=== PATIENT | male | born 1950 | race Caucasian/White ===

== ENCOUNTER 2016-10-03 13:19 | Emergency (ER) | payer MEDICAID ==
[2016-10-03 13:45] VITALS: BP 107/63
--- NOTE | 2016-10-03 14:16 | EDM.PDOC ---
ED HPI GENERAL MEDICAL PROBLEM - General Chief Complaint: General Stated Complaint: OUT OF MEDICAITION Time Seen by Provider: 10/03/16 14:13 Source of Information: Reports: Patient History Limitations: Reports: No Limitations - History of Present Illness INITIAL COMMENTS - FREE TEXT/NARRATIVE: pt states that he ran out of his metformin yesterday and was unable to be seen in the clinic for a refill. States that he just recently moved back and has not established a PCP yet. C/o generalized pain usually due to neuropathy but denies much pain currently. Onset: Today Associated Symptoms: Reports: No Other Symptoms - Related Data Allergies Allergy/AdvReac Type Severity Reaction Status Date / Time No Known Allergies Allergy Verified 08/16/15 00:50 Home Meds: Home Meds metFORMIN [Glucophage] 500 mg PO BID 08/12/15 [History] Gabapentin [Neurontin] 1 cap PO DAILY 10/03/16 [History] Past Medical History HEENT History: Reports: Impaired Vision Respiratory History: Reports: None Gastrointestinal History: Reports: None Genitourinary History: Reports: None Musculoskeletal History: Reports: Other (See Below) Other Musculoskeletal History: neuropathy Neurological History: Reports: None Psychiatric History: Reports: Anxiety, Depression, Suicide Attempt Endocrine/Metabolic History: Reports: Diabetes, Type II Hematologic History: Reports: None Oncologic (Cancer) History: Reports: None - Past Surgical History Head Surgeries/Procedures: Reports: None Cardiovascular Surgical History: Reports: None GI Surgical History: Reports: Other (See Below) Social & Family History - Tobacco Use Smoking Status *Q: Current Every Day Smoker Years of Tobacco use: 40 Packs/Tins Daily: 1 Used Tobacco, but Quit: No Second Hand Smoke Exposure: No - Caffeine Use Caffeine Use: Reports: Coffee, Soda - Recreational Drug Use Recreational Drug Use: No ED ROS GENERAL - Review of Systems Review Of Systems: ROS reveals no pertinent complaints other than HPI. ED EXAM, GENERAL - Physical Exam Exam: See Below Exam Limited By: No Limitations General Appearance: Alert, WD/WN, No Apparent Distress Eye Exam: Bilateral Eye: PERRL Respiratory/Chest: No Respiratory Distress, Lungs Clear, Normal Breath Sounds, No Accessory Muscle Use, Chest Non-Tender Cardiovascular: Normal Peripheral Pulses, Regular Rate, Rhythm, No Edema, No Gallop, No JVD, No Murmur, No Rub Peripheral Pulses: 4+: Brachial (L), Brachial (R), Radial (L), Radial (R) Neurological: Alert, Oriented, CN II-XII Intact, Normal Cognition, Normal Gait, Normal Reflexes, No Motor/Sensory Deficits Course - Vital Signs Last Recorded V/S: Last Vital Signs Temp 98.8 F 10/03/16 13:23 Pulse 86 10/03/16 13:23 Resp 16 10/03/16 13:23 BP 107/63 10/03/16 13:23 Pulse Ox 98 10/03/16 13:23 - Orders/Labs/Meds Orders: Active Orders 24 hr Category Date Time Status Glucose [Blood Glucose Check, Bedside] [RC] ONETIME Care 10/03/16 14:16 Active metFORMIN [Glucophage] Med 10/03/16 14:51 Once 500 mg PO ONETIME ONE Medication Orders Metformin HCl (Glucophage) 500 mg PO ONETIME ONE Stop: 10/03/16 14:52 Labs: Laboratory Tests 10/03/16 Range/Units 14:45 POC Glucose 170 H (70-105) mg/dl Meds: Medications Generic Name Dose Route Start Last Admin Trade Name Anaya PRN Reason Stop Dose Admin Metformin HCl 500 mg 10/03/16 14:51 Glucophage PO 10/03/16 14:52 ONETIME ONE - Re-Assessments/Exams Free Text/Narrative Re-Assessment/Exam: 10/03/16 14:52 Blood glucose 179, Will write for refill of metformin 500 mg for 2 weeks as patient states that he has appointment scheduled for then. Departure - Departure Time of Disposition: 14:53 Disposition: Home, Self-Care 01 Condition: Good Clinical Impression: Medication refill Diabetes Qualifiers: Diabetes mellitus type: type 2 Diabetes mellitus complication status: without complication Diabetes mellitus intermission coordinator insulin use: without intermission coordinator use Qualified Code(s): E11.9 - Type 2 diabetes mellitus without complications - Discharge Information Instructions: Medicine Refill at the Emergency Department, Type 2 Diabetes Mellitus, Adult Forms: ED Department Discharge Additional Instructions: Make sure to keep your appointment at the clinic for the refill of your medication. Return for any worsening symptoms - My Orders Last 24 Hours: My Active Orders 10/03/16 14:16 Glucose [Blood Glucose Check, Bedside] [RC] ONETIME 10/03/16 14:51 metFORMIN [Glucophage] 500 mg PO ONETIME ONE - Assessment/Plan Last 24 Hours: My Active Orders 10/03/16 14:16 Glucose [Blood Glucose Check, Bedside] [RC] ONETIME 10/03/16 14:51 metFORMIN [Glucophage] 500 mg PO ONETIME ONE
[2016-10-03] MEDS ORDERED: metFORMIN 500 MG Tab PO ONE (14:51)
== END 2016-10-03 15:16 | disposition home or self-care (01) ==
LOC: DL.ED 13:19
DX: E11.9 Type 2 diabetes mellitus without complications (principal); H54.7 Unspecified visual loss; F17.210 Nicotine dependence, cigarettes, uncomplicated; Z79.899 Other long term (current) drug therapy
CPT/HCPCS: 82962; 99282; A9270

== ENCOUNTER 2016-10-08 06:25 | Emergency (ER) | payer MEDICAID ==
[2016-10-08 06:33] VITALS: BP 116/73
[2016-10-08] MEDS ORDERED: Gabapentin 100 MG Cap PO ONE (06:43)
--- NOTE | 2016-10-08 06:47 | EDM.PDOC ---
ED HPI GENERAL MEDICAL PROBLEM - General Chief Complaint: Lower Extremity Injury/Pain Stated Complaint: PAIN IN LEGS/FEET AND FINGERS, [id number] Time Seen by Provider: 10/08/16 06:40 Source of Information: Reports: Patient History Limitations: Reports: No Limitations - History of Present Illness INITIAL COMMENTS - FREE TEXT/NARRATIVE: This 66 yo male patient reports to the ED for the second time this week due to running out of medications. The patient reports he ran out of his Gabapentin 2 days ago and has had increased pain in his feet. The patient reports he will be going back to [place] [employer] today and back to his hometown in a couple of days. Onset: Gradual Duration: Day(s):, Constant, Getting Worse Location: Reports: Generalized Quality: Reports: Ache Severity: Moderate Improves with: Reports: None Worsens with: Reports: None Associated Symptoms: Reports: No Other Symptoms Leg Pain Score (Numeric/FACES): 6 - Related Data Allergies Allergy/AdvReac Type Severity Reaction Status Date / Time No Known Allergies Allergy Verified 10/08/16 06:33 Home Meds: Home Meds metFORMIN [Glucophage] 500 mg PO BID 08/12/15 [History] Gabapentin [Neurontin] 1 cap PO DAILY 10/03/16 [History] Past Medical History HEENT History: Reports: Impaired Vision Respiratory History: Reports: None Gastrointestinal History: Reports: None Genitourinary History: Reports: None Musculoskeletal History: Reports: Other (See Below) Other Musculoskeletal History: neuropathy Neurological History: Reports: Neuropathy, Diabetic Psychiatric History: Reports: Anxiety, Depression, Suicide Attempt Endocrine/Metabolic History: Reports: Diabetes, Type II Hematologic History: Reports: None Oncologic (Cancer) History: Reports: None - Past Surgical History Head Surgeries/Procedures: Reports: None Cardiovascular Surgical History: Reports: None GI Surgical History: Reports: Other (See Below) Social & Family History - Tobacco Use Smoking Status *Q: Current Every Day Smoker Years of Tobacco use: 40 Packs/Tins Daily: 1 Used Tobacco, but Quit: No Second Hand Smoke Exposure: Yes - Caffeine Use Caffeine Use: Reports: Coffee, Soda - Recreational Drug Use Recreational Drug Use: No Review of Systems - Review of Systems Review Of Systems: ROS reveals no pertinent complaints other than HPI. ED EXAM, GENERAL - Physical Exam Exam: See Below Exam Limited By: No Limitations General Appearance: Alert, WD/WN, Anxious, Mild Distress Eye Exam: Bilateral Eye: EOMI, Normal Inspection, PERRL Ears: Normal External Exam, Normal Canal, Hearing Grossly Normal, Normal TMs Nose: Normal Inspection, Normal Mucosa, No Blood Throat/Mouth: Normal Inspection, Normal Lips, Normal Teeth, Normal Gums, Normal Oropharynx, Normal Voice, No Airway Compromise Head: Atraumatic, Normocephalic Neck: Normal Inspection, Supple, Non-Tender, Full Range of Motion Respiratory/Chest: No Respiratory Distress, Lungs Clear, Normal Breath Sounds, No Accessory Muscle Use, Chest Non-Tender Cardiovascular: Normal Peripheral Pulses, Regular Rate, Rhythm, No Edema, No Gallop, No JVD, No Murmur, No Rub GI/Abdominal: Normal Bowel Sounds, Soft, Non-Tender, No Organomegaly, No Distention, No Abnormal Bruit, No Mass (Male) Exam: Deferred Rectal (Males) Exam: Deferred Back Exam: Normal Inspection, Full Range of Motion, NT Extremities: Normal Inspection, Normal Range of Motion, Non-Tender, Normal Capillary Refill, No Pedal Edema Neurological: Alert, Oriented, CN II-XII Intact, Normal Cognition, Normal Gait, Normal Reflexes, No Motor/Sensory Deficits Psychiatric: Normal Affect, Normal Mood Skin Exam: Warm, Dry, Intact, Normal Color, No Rash Lymphatic: No Adenopathy Course - Vital Signs Last Recorded V/S: Last Vital Signs Temp 36.1 C 10/08/16 06:30 Pulse 70 10/08/16 06:30 Resp 18 10/08/16 06:30 BP 116/73 10/08/16 06:30 Pulse Ox 100 10/08/16 06:30 - Orders/Labs/Meds Meds: Medications Discontinued Medications Generic Name Dose Route Start Last Admin Trade Name Anaya PRN Reason Stop Dose Admin Gabapentin 100 mg 10/08/16 06:43 Neurontin PO 10/08/16 06:44 ONETIME ONE Departure - Departure Time of Disposition: 06:45 Disposition: Home, Self-Care 01 Condition: Fair Clinical Impression: Peripheral neuropathy Qualifiers: Peripheral neuropathy type: polyneuropathy, unspecified Qualified Code(s): G62.9 - Polyneuropathy, unspecified - Discharge Information Instructions: Neuropathic Pain, Peripheral Neuropathy Forms: ED Department Discharge Care Plan Goals: The patient was advised of the examination results during the visit. The patient was given an oral dose of Gabapentin (100 mg) while in the ED. The patient was discharged with a script for Gabapentin (100 mg) #4 to take 1 by mouth daily. The patient should follow-up with his primary care facility for continued evaluation and further management.
== END 2016-10-08 07:00 | disposition home or self-care (01) ==
LOC: DL.ED 06:25
DX: E11.42 Type 2 diabetes mellitus with diabetic polyneuropathy (principal); F41.9 Anxiety disorder, unspecified; F32.9 Major depressive disorder, single episode, unspecified; F17.210 Nicotine dependence, cigarettes, uncomplicated; Z79.899 Other long term (current) drug therapy
CPT/HCPCS: 99281; A9270

== ENCOUNTER 2019-09-14 07:21 | Emergency (ER) | payer MEDICARE, MEDICAID ==
--- NOTE | 2019-09-14 07:31 | EDM.PDOC ---
ED HPI GENERAL MEDICAL PROBLEM - General Chief Complaint: Medication Administration Stated Complaint: OUT OF MEDS FOR NEUROPATHY DIABETES Time Seen by Provider: 09/14/19 07:34 Source of Information: Reports: Patient, Old Records, RN, RN Notes Reviewed History Limitations: Reports: No Limitations - History of Present Illness INITIAL COMMENTS - FREE TEXT/NARRATIVE: Pt states he is from out of town and forgot his Metformin and Gabapentin, and has not taken them for about 2 weeks. Denies any acute complaints and admits that he has no medical emergency. He would like to have his medications refilled. Onset: Today Location: Reports: Generalized Associated Symptoms: Reports: No Other Symptoms Bilateral Feet Pain Score (Numeric/FACES): 8 - Related Data Allergies Allergy/AdvReac Type Severity Reaction Status Date / Time No Known Allergies Allergy Verified 09/14/19 07:34 Home Meds: Home Meds metFORMIN [Glucophage] 500 mg PO BID 08/12/15 [History] Gabapentin [Neurontin] 1,200 mg PO TID 09/14/19 [History] Past Medical History HEENT History: Reports: Impaired Vision Respiratory History: Reports: None Gastrointestinal History: Reports: None Genitourinary History: Reports: None Musculoskeletal History: Reports: Other (See Below) Other Musculoskeletal History: neuropathy Neurological History: Reports: Neuropathy, Diabetic Psychiatric History: Reports: Anxiety, Depression, Suicide Attempt Endocrine/Metabolic History: Reports: Diabetes, Type II Hematologic History: Reports: None Oncologic (Cancer) History: Reports: None - Past Surgical History Head Surgeries/Procedures: Reports: None Cardiovascular Surgical History: Reports: None GI Surgical History: Reports: Other (See Below) Social & Family History - Family History Family Medical History: Noncontributory - Caffeine Use Caffeine Use: Reports: Coffee, Soda - Living Situation & Occupation Occupation: Retired ED ROS GENERAL - Review of Systems Review Of Systems: Comprehensive ROS is negative, except as noted in HPI. ED EXAM, GENERAL - Physical Exam Exam: See Below Exam Limited By: No Limitations General Appearance: Alert, No Apparent Distress Respiratory/Chest: No Respiratory Distress (Male) Exam: Deferred Rectal (Males) Exam: Deferred Extremities: Normal Inspection Neurological: Alert, Oriented, Normal Cognition, Normal Gait Psychiatric: Normal Affect, Normal Mood Skin Exam: Warm, Dry, Intact, Normal Color Course - Vital Signs Last Recorded V/S: Last Vital Signs Temp 98.4 F 09/14/19 07:34 Pulse 59 L 09/14/19 07:34 Resp 16 09/14/19 07:34 BP 133/67 09/14/19 07:34 Pulse Ox 100 09/14/19 07:34 Departure - Departure Time of Disposition: 07:39 Disposition: Home, Self-Care 01 Condition: Good Clinical Impression: Medication refill - Discharge Information *PRESCRIPTION DRUG MONITORING PROGRAM REVIEWED*: No *COPY OF PRESCRIPTION DRUG MONITORING REPORT IN PATIENT KUSUM: No Forms: ED Department Discharge Additional Instructions: Follow up to establish care at a local clinic for medication management in the next 3 days. Sepsis Event Note - Focused Exam Vital Signs: Vital Signs Temp Pulse Resp BP Pulse Ox 09/14/19 07:34 98.4 F 59 L 16 133/67 100 Date Exam was Performed: 09/14/19 Time Exam was Performed: 07:39
[2019-09-14 07:37] VITALS: BP 133/67; PULSE 59
== END 2019-09-14 07:46 | disposition home or self-care (01) ==
LOC: DL.ED 07:21
DX: Z76.0 Encounter for issue of repeat prescription (principal); E11.40 Type 2 diabetes mellitus with diabetic neuropathy, unspecified; Z79.899 Other long term (current) drug therapy; Z79.84 Long term (current) use of oral hypoglycemic drugs
CPT/HCPCS: 99281; 99282

== ENCOUNTER 2021-04-08 12:55 | Emergency (ER) | payer MEDICARE ==
[2021-04-08 13:36] VITALS: BP 125/77; PULSE 65
--- NOTE | 2021-04-08 13:48 | EDM.PDOC ---
ED HPI GENERAL MEDICAL PROBLEM - General Stated Complaint: SORE ON FACE / MEDICATION REFILL Time Seen by Provider: 04/08/21 13:30 Source of Information: Reports: Patient History Limitations: Reports: No Limitations - History of Present Illness INITIAL COMMENTS - FREE TEXT/NARRATIVE: This 71 yo male patient reports to the ED due to running out of medication (Lyrica) and having a skin lesion on the right side of his face. The patient reports he is due to fill his Lyrica today and has a prescription at [facility] in [place], but does not plan on going to [place] today. The patient reports he has had the skin lesion on his right cheek and would like is removed with further evaluation for a possible cancer. Onset: Unknown/Unsure Duration: Constant Location: Reports: Face, Generalized Quality: Reports: Other Severity: Moderate Improves with: Reports: None Worsens with: Reports: None Context: Reports: Other Associated Symptoms: Reports: No Other Symptoms - Related Data Allergies Allergy/AdvReac Type Severity Reaction Status Date / Time No Known Allergies Allergy Verified 04/08/21 13:24 Home Meds: Home Meds metFORMIN [Glucophage] 500 mg PO BID 08/12/15 [History] Gabapentin [Neurontin] 1,200 mg PO TID 09/14/19 [History] Past Medical History HEENT History: Reports: Impaired Vision Respiratory History: Reports: None Gastrointestinal History: Reports: None Genitourinary History: Reports: None Musculoskeletal History: Reports: Other (See Below) Other Musculoskeletal History: neuropathy Neurological History: Reports: Neuropathy, Diabetic Psychiatric History: Reports: Anxiety, Depression, Suicide Attempt Endocrine/Metabolic History: Reports: Diabetes, Type II Hematologic History: Reports: None Oncologic (Cancer) History: Reports: None - Past Surgical History Head Surgeries/Procedures: Reports: None HEENT Surgical History: Reports: Tonsillectomy Cardiovascular Surgical History: Reports: None GI Surgical History: Reports: Other (See Below) Other GI Surgeries/Procedures: hx surgery on stomach to have razor blades that he had swallowed removed Social & Family History - Family History Family Medical History: No Pertinent Family History - Tobacco Use Tobacco Use Status *Q: Current Every Day Tobacco User Years of Tobacco use: 0 Packs/Tins Daily: 0 - Caffeine Use Caffeine Use: Reports: Coffee - Recreational Drug Use Recreational Drug Use: No - Living Situation & Occupation Occupation: Retired ED ROS GENERAL - Review of Systems Review Of Systems: Comprehensive ROS is negative, except as noted in HPI. ED EXAM, GENERAL - Physical Exam Exam: See Below Exam Limited By: No Limitations General Appearance: Alert, WD/WN, Moderate Distress Eye Exam: Bilateral Eye: EOMI, Normal Inspection, PERRL Ears: Normal External Exam, Normal Canal, Hearing Grossly Normal, Normal TMs Nose: Normal Inspection, Normal Mucosa, No Blood Throat/Mouth: Normal Inspection, Normal Lips, Normal Teeth, Normal Gums, Normal Oropharynx, Normal Voice, No Airway Compromise Head: Atraumatic, Normocephalic Neck: Normal Inspection, Supple, Non-Tender, Full Range of Motion Respiratory/Chest: No Respiratory Distress, Lungs Clear, Normal Breath Sounds, No Accessory Muscle Use, Chest Non-Tender Cardiovascular: Normal Peripheral Pulses, Regular Rate, Rhythm, No Edema, No Gallop, No JVD, No Murmur, No Rub GI/Abdominal: Normal Bowel Sounds, Soft, Non-Tender, No Organomegaly, No Distention, No Abnormal Bruit, No Mass (Male) Exam: Deferred Rectal (Males) Exam: Deferred Back Exam: Normal Inspection, Full Range of Motion, NT Extremities: Normal Inspection, Normal Range of Motion, Non-Tender, No Pedal Edema, Normal Capillary Refill, Other ([place]) Neurological: Alert, Oriented, CN II-XII Intact, Normal Cognition, Normal Gait Psychiatric: Normal Affect, Normal Mood Skin Exam: Warm, Dry, Intact, Normal Color, No Rash Lymphatic: No Adenopathy Course - Vital Signs Last Recorded V/S: Last Vital Signs Temp 98.7 F 04/08/21 13:24 Pulse 65 04/08/21 13:24 Resp 18 04/08/21 13:24 BP 125/77 04/08/21 13:24 Pulse Ox 95 04/08/21 13:24 - Orders/Labs/Meds Labs: Laboratory Tests 04/08/21 Range/Units 13:11 POC Glucose 92 (70-99) mg/dL Departure - Departure Time of Disposition: 13:48 Disposition: Home, Self-Care 01 Condition: Fair Clinical Impression: Neuropathy - Discharge Information *PRESCRIPTION DRUG MONITORING PROGRAM REVIEWED*: Not Applicable *COPY OF PRESCRIPTION DRUG MONITORING REPORT IN PATIENT KUSUM: Not Applicable Instructions: Peripheral Neuropathy Forms: ED Department Discharge Care Plan Goals: The patient was advised of the examination results during the visit. A call was placed to [facility] regarding the patient's prescription for Lyrica. Since the patient has a script at [facility] in [place] and has not filled in that pharmacy, the patient will have to fill his prescription at the pharmacy in [place]. The patient was advised of this information during the visit. The patient was encouraged to follow-up with his primary care facility for further evaluation of his dermatology concerns as well. If the patient has any additional symptoms or concerns, the patient should either return to the emergency department or visit his primary care facility. Sepsis Event Note (ED) - Evaluation Sepsis Screening Result: No Definite Risk - Focused Exam Vital Signs: Vital Signs Temp Pulse Resp BP Pulse Ox 04/08/21 13:24 98.7 F 65 18 125/77 95
== END 2021-04-08 14:01 | disposition home or self-care (01) ==
LOC: DL.ED 12:55
DX: E11.40 Type 2 diabetes mellitus with diabetic neuropathy, unspecified (principal); Z79.84 Long term (current) use of oral hypoglycemic drugs; Z72.0 Tobacco use
CPT/HCPCS: 82947; 99284